=== PATIENT | male | born 1985 | race Caucasian/White ===

== ENCOUNTER 2017-03-30 08:31 | Emergency (ER) | payer OTHER ==
[~2017-03-30] VITALS: Ht 170.2 cm; Wt 82.0 kg
[2017-03-30 08:45] VITALS: BP 103/67
[2017-03-30] MEDS ORDERED: ALBU2.5V13 IH (08:48)
== END 2017-03-30 17:10 | disposition left against medical advice (07) ==
LOC: ER 08:31
DX: J45.909 Unspecified asthma, uncomplicated (principal); Z53.21 Procedure and treatment not carried out due to patient leaving prior to being seen by health care provider